=== PATIENT | female | born 1940 | race Caucasian/White ===

== ENCOUNTER 2016-10-06 09:06 | Emergency (ER) | payer MEDICARE, BC ==
--- NOTE | 2016-10-06 09:34 | RADIOLOGY REPORT (SQ) ---
EXAM DESCRIPTION: WRIST RIGHT 3 VIEWS; FOREARM RIGHT COMPLETED DATE/TIME: 10/06/2016 9:25 am REASON FOR STUDY: injury COMPARISON: None. NUMBER OF VIEWS: Five views. TECHNIQUE: AP, lateral, and oblique radiographic images acquired of the right wrist along with AP an d lateral views of the right forearm. LIMITATIONS: None. FINDINGS: MINERALIZATION: Osteopenia. BONES: Comminuted intra-articular fracture of the distal radius with mild impaction and moderate dors al displacement. Comminuted intra-articular fracture through the distal ulna with mild displacement. SOFT TISSUES: Associated soft tissue swelling. OTHER: No other significant finding. IMPRESSION: INTRA-ARTICULAR FRACTURES OF THE DISTAL RADIUS AND ULNA DETAILED ABOVE. TECHNICAL DOCUMENTATION: JOB ID: [id number] [employer]- All Rights Reserved
--- NOTE | 2016-10-06 09:34 | RADIOLOGY REPORT (SQ) ---
EXAM DESCRIPTION: WRIST RIGHT 3 VIEWS; FOREARM RIGHT COMPLETED DATE/TIME: 10/06/2016 9:25 am REASON FOR STUDY: injury COMPARISON: None. NUMBER OF VIEWS: Five views. TECHNIQUE: AP, lateral, and oblique radiographic images acquired of the right wrist along with AP an d lateral views of the right forearm. LIMITATIONS: None. FINDINGS: MINERALIZATION: Osteopenia. BONES: Comminuted intra-articular fracture of the distal radius with mild impaction and moderate dors al displacement. Comminuted intra-articular fracture through the distal ulna with mild displacement. SOFT TISSUES: Associated soft tissue swelling. OTHER: No other significant finding. IMPRESSION: INTRA-ARTICULAR FRACTURES OF THE DISTAL RADIUS AND ULNA DETAILED ABOVE. TECHNICAL DOCUMENTATION: JOB ID: [id number] [employer]- All Rights Reserved
--- NOTE | 2016-10-06 09:56 | ER Document Report ---
ED Extremity Problem, Upper - General Chief Complaint: Arm Injury Stated Complaint: FALL/RIGHT ARM INJURY Time Seen by Provider: 10/06/16 09:55 Mode of Arrival: Ambulatory Information source: Patient TRAVEL OUTSIDE OF THE [place] IN LAST 30 DAYS: No - HPI Patient complains to provider of: Injury, Right, Wrist Onset: Just prior to arrival Recent injury: Yes Where: Home Quality of pain: Sharp Severity of pain: Moderate Context: Fall - TRIPPED Associated symptoms: None Exacerbated by: Movement Relieved by: Positioning Similar symptoms previously: No Recently seen / treated by doctor: No - Related Data Allergies/Adverse Reactions: No Known Allergies Allergy (Verified 10/06/16 09:49) Past Medical History - General Information source: Patient - Social History Smoking Status: Unknown if Ever Smoked Frequency of alcohol use: Occasional Drug Abuse: None Lives with: Spouse/Significant other Family History: Reviewed & Not Pertinent Patient has suicidal ideation: No Patient has homicidal ideation: No - Past Medical History Cardiac Medical History: Reports: Hx Hypertension Pulmonary Medical History: Reports: Hx COPD Endocrine Medical History: Reports: None Renal/ Medical History: Reports: None. Denies: Hx Peritoneal Dialysis Malignancy Medical History: Reports: None GI Medical History: Reports: None Psychiatric Medical History: Reports: None Surgical Hx: Negative Review of Systems - Review of Systems Constitutional: No symptoms reported EENT: No symptoms reported Cardiovascular: No symptoms reported Respiratory: No symptoms reported Gastrointestinal: No symptoms reported Genitourinary: No symptoms reported Female Genitourinary: Post menopausal Musculoskeletal: See HPI Skin: No symptoms reported Neurological/Psychological: No symptoms reported Physical Exam - Vital signs Vitals: Temp Pulse Resp BP Pulse Ox 97.8 F 87 18 126/45 H 92 10/06/16 09:10 10/06/16 09:10 10/06/16 09:10 10/06/16 09:10 10/06/16 09:10 Interpretation: Normal - General General appearance: Appears well, Alert In distress: None - HEENT Head: Normocephalic Eyes: Normal Conjunctiva: Normal Ears: Normal Nasal: Normal Mouth/Lips: Normal Mucous membranes: Normal - Respiratory Respiratory status: No respiratory distress - Cardiovascular Rhythm: Regular - Abdominal Inspection: Normal Distension: No distension - Back Back: Normal - Extremities General upper extremity: No: Normal inspection - R. WRIST (SEE BELOW) General lower extremity: Normal inspection Wrist: Tender, Limited ROM, Other - SWOLLWEN - Neurological Neuro grossly intact: Yes - SENSATION INTACT DISTAL TO INJURY - Psychological Associated symptoms: Normal affect, Normal mood - Skin Skin Temperature: Warm Skin Moisture: Dry Skin Color: Normal Skin Turgor: Elastic Course - Vital Signs Vital signs: Temp Pulse Resp BP Pulse Ox 97.8 F 87 18 126/45 H 92 10/06/16 09:10 10/06/16 09:10 10/06/16 09:10 10/06/16 09:10 10/06/16 09:10 - Diagnostic Test Radiology reviewed: Image reviewed, Reports reviewed Procedures - Immobilization Right Wrist Time completed: 11:15 Pre-Proc Neuro Vasc Exam: Normal Immobilizer type: Sugar tong, Sling Performed by: RN, PCT Post-Proc Neuro Vasc Exam: Normal, Unchanged from pre-exam Alignment checked and good: Yes Discharge - Discharge Clinical Impression: Radius and ulna distal fracture Qualifiers: Encounter type: initial encounter Fracture type: closed Laterality: right Qualified Code(s): S52.501A - Unspecified fracture of the lower end of right radius, initial encounter for closed fracture Instructions: Splint Pending Casting ([facility]), Ice & Elevation ([facility]), Oral Narcotic Medication ([facility]), Fracture (awaiting reduction) ([facility]) Additional Instructions: FOLLOW UP WITH ORTHOPEDIC SURGEON FOR REDUCTION AND CASTING, CALL TOMORROW ( FRIDAY) A.M. FOR APPT. RETURN TO E.R. IF PROBLEMS, ANY TIME. Prescriptions: Oxycodone HCl/Acetaminophen [Percocet 5-325 mg Tablet] 1 - 2 tab PO ASDIR PRN # 15 tablet PRN Reason: Referrals: CHIRAG SNOWDEN MD [ACTIVE STAFF] - Follow up in 3-5 days
[2016-10-06] MEDS ORDERED: OXYCODONE-ACETAMINOPHEN 5-325 MG TABLET PO ONE (10:09)
[2016-10-06] MEDS ORDERED: ONDANSETRON 4 MG TAB.RAPDIS PO ONE (11:18)
[2016-10-06 12:07] VITALS: BP 126/53
== END 2016-10-06 11:54 | disposition home or self-care (01) ==
LOC: ER 09:06
PROC: 2W3CX1Z Immobilization of Right Lower Arm using Splint (ICD-10-PCS; principal; 2016-10-06)
DX: S52.501A Unspecified fracture of the lower end of right radius, initial encounter for closed fracture (principal); W01.0XXA Fall on same level from slipping, tripping and stumbling without subsequent striking against object, initial encounter; Y92.009 Unspecified place in unspecified non-institutional (private) residence as the place of occurrence of the external cause; I10 Essential (primary) hypertension; J44.9 Chronic obstructive pulmonary disease, unspecified
CPT/HCPCS: 99283; 73090; 73110; 29125; A9270 ×2; S0119